=== PATIENT | female | born 1985 | race African-American/Black ===

== ENCOUNTER 2024-06-27 22:33 | Emergency (ER) | payer OTHER, SELFPAY ==
[2024-06-27 22:35] VITALS: BP 149/96
[2024-06-27 22:51] LABS: Urine Albumin Trace (Neg - Trace); Urine Bilirubin Negative (Negative); Urine Character Slightly Cloudy (Clear); Urine Color Straw; Urine Glucose Negative (Negative); Urine Ketone Negative (Negative); Urine Leukocyte 2+ (Negative); Urine Nitrite Negative (Negative); Urine Occult Blood 3+ (Negative); Urine Urobilinogen Negative (Neg - 1+)
[2024-06-27 23:00] LABS: Urine Squamous Cell 26-30 /LPF (Few)
[2024-06-27 23:01] LABS: Urine Bacteria Few (Negative)
[2024-06-28] MEDS: NSS 1000 IV (00:17)
[2024-06-28] MEDS: TORADOL 15 MG IV (00:17)
[2024-06-28] MEDS: ROCEPHIN 1000 MG IV (00:18)
[2024-06-28 00:35] LABS: HCG, Serum Qualitative Screen Negative
[2024-06-28 00:39] LABS: Blood Urea Nitrogen 16 mg/dl (7-17); Calcium 8.9 mg/dl (8.4-10.2); Carbon Dioxide 21 mmol/L (22-30); Chloride 108 mmol/L (98-107); Glucose 115 mg/dl (70-99); Potassium 3.6 mmol/L (3.5-5.1); Sodium 142 mmol/L (135-145); eGFR > 60.00
[2024-06-28 00:40] LABS: % Basophils 0.2 % (0-2); % Eosinophils 1.4 % (0-6); % Immature Granulocytes 1.2 % (0-0.5); % Lymphocytes 18.4 % (20.5-51.1); % Monocytes 7.3 % (1.7-9.3); % Neutrophils 71.5 % (42.2-75.2); Absolute Eosinophils 0.1 10^3/uL (0-0.7); Absolute Immature Granulocytes 0.1 10^3/uL (0-0.05); Absolute Lymphocytes 1.6 10^3/uL (1.2-3.4); Absolute Monocytes 0.6 10^3/uL (0.1-0.6); Absolute Neutrophils 6.3 10^3/uL (1.4-6.5); Hematocrit 30.7 % (37.0-47.0); Hemoglobin 10.5 g/dL (12.0-16.0); Mean Corp Hgb Conc. 34.2 g/dL (33.0-37.0); Mean Corpuscular Hgb 28.9 pg (27.0-31.0); Mean Corpuscular Volume 84.6 fL (81.0-99.0); Mean Platelet Volume 10.8 fL (7.4-10.4); Nucleated Red Blood Cells % 0 %; Platelet Count 224 10^3/uL (130-400); Red Blood Cell Count 3.63 10^6/uL (4.20-5.40); Red Cell Dist. Width 13.2 % (11.5-14.5); White Blood Cell Count 8.8 10^3/uL (4.8-10.8)
--- NOTE | 2024-06-28 01:02 | ED.GENMED ---
History of Present Illness
General
Chief Complaint: Urinary Symptoms
Source: patient
Exam Limitations: none
Time Seen by Provider: 06/27/24 23:36
History of Present Illness
History of Present Illness:
38-year-old female describing UTI-like symptoms for 4 days with dysuria frequency and urgency. Started with back pain earlier today. No obvious fever or chills but did have a low-grade fever on arrival. History of UTIs in the past.
Past History
Past History
ED Past Surgical History: Cholecystectomy and
Review of Systems
Review of Systems
All Other Systems: Not applicable
Constitutional: Reports fever
ABD/GI: Reports no symptoms
Phy Exam
Physical Exam
Physical Exam:
GENERAL: Alert and oriented in no apparent distress. But does appear uncomfortable
EYE: Orbits normal.
NECK: Supple
CARDIAC: Regular rate and rhythm without any obvious murmurs.
LUNGS: Clear breath sounds,normal
ABDOMEN: Soft, without focal tenderness or distention no CVA tenderness
NEUROLOGICAL: Alert and oriented , grossly non-focal
SKIN: Warm and dry, no rash or lesion, no discoloration, skin intact.
MUSCULOSKELETAL: No edema,no deformity.Good color
PSYCH: Normal and appropriate interaction.
Sepsis
Sepsis Screening
Sepsis Assessment: Sepsis Ruled Out
Sepsis Screen
Sepsis Screen: Sepsis Ruled Out
Date: 06/28/24
Time: 01:46
Course
Orders/Labs/Results
Orders:
Orders
06/27/24 22:42
Urinalysis Reflex To Culture Urgent
Date Specimen was Collected: 06/27/24
Time Specimen was Collected: 22:39
Urine Microscopic Reflex Cult Urgent
Urine Culture Urgent
JAYNA Source: U
Specimen Description:
Date Specimen was Collected: 06/27/24
Time Specimen was Collected: 22:39
06/27/24 23:53
IV Insert/Care/Rem.- Treatment PRN
Basic Metabolic Panel Urgent
Complete Blood Count/With Diff Urgent
HCG, Serum Qualitative Screen Urgent
0.9% Sodium Chloride 1000 ml [Nss] 1,000 ml IV BOLUS
CefTRIAXone [Rocephin] 1,000 mg IV NOW STA
Ketorolac [Toradol] 15 mg IV NOW STA
Test Result ONCE
06/28/24 00:30
CT Abd/pel Without Iv Or Oral Urgent
Reason For Exam: Back pain/UTI
Abnormal Lab Results
06/27/24 06/28/24
22:42 00:16
RBC 3.63 L 10^6/uL
(4.20-5.40)
Hgb 10.5 L g/dL
(12.0-16.0)
Hct 30.7 L %
(37.0-47.0)
MPV 10.8 H fL
(7.4-10.4)
Abs Immat Gran (auto) 0.1 H 10^3/uL
(0-0.05)
Immature Gran % 1.2 H %
(0-0.5)
Lymphocytes % 18.4 L %
(20.5-51.1)
Chloride 108 H mmol/L
(98-107)
Carbon Dioxide 21 L mmol/L
(22-30)
Glucose 115 H mg/dl
(70-99)
Ur Occult Blood Reflex 3+ A
(Negative)
Leukocyte Esterase Rfl 2+ A
(Negative)
Urine RBC 3-6 A /HPF
(0-2)
Urine WBC (Reflex) 11-15 A /HPF
(0-5)
Urine Bacteria (Reflex) Few A
(Negative)
06/28/24 00:16
06/28/24 00:16
Vital Signs
Initial and Last Documented VS:
Initial Vital Signs
Temp Pulse Resp BP Pulse Ox
100.4 F H 106 18 149/96 99
06/27/24 22:35 06/27/24 22:35 06/27/24 22:35 06/27/24 22:35 06/27/24 22:35
Last Documented Vital Signs
Temp Pulse Resp BP Pulse Ox
100.4 F H 106 18 149/96 99
06/27/24 22:35 06/27/24 22:35 06/27/24 22:35 06/27/24 22:35 06/27/24 22:35
MDM/Problems Addressed
Differential Diagnosis Includes:
UTI/pyelo plus minus obstructing kidney stone. Workup in progress.
*Radiology
Radiology exam reviewed: radiology read reviewed (No obstructing stone. Mildly dilated bilateral ureters. Cystitis.)
*Pulse Oximetry
Patient hypoxic: no
*Critical Care Note
Total Time (30-74mins, 75-104mins- exclusive of procedures): Not Applicable
Update Note
Update Note:
Patient medically stable and nontoxic. No distress. Appears better after fluids and Toradol. All consistent with UTI/early pyelonephritis. Stable for discharge to follow-up. Of note I had done a repeat temperature prior to Toradol with a
temperature of 99.0
ED Attending Note
-
Portions of this chart may have been created with voice recognition software.� Occasional wrong word or��sound alike� substitutions may have occurred due to the inherent limitations of voice recognition software.
Discharge Plan
Departure
Patient Disposition: Home (Routine Discharge)
Date of Disposition: 06/28/24
Time of Disposition: 01:42
Patient with high blood pressure during this ER visit?: Yes
Discharge Problem:
UTI/pyelonephritis
Instructions: Urinary Tract Infection, Adult (DC), BLOOD PRESSURE
Prescriptions:
New
cefdinir 300 mg capsule
300 mg PO BID 7 Days Qty: 14 0RF
Referrals:
Jose Luis Lee MD [Family Provider] - Follow up in 2-3 days
Activity Restrictions/Additional Instructions:
Your prescription was sent to your pharmacy
Stay well-hydrated
Tylenol or Advil for aches
Start the antibiotic this evening
Recheck if not significantly improving in 1 to 2 days, high fever, severe shaking chills, increased pain or any other concerning symptoms
Interventions
Interventions:
*Risk Screen - Suicide Last Done: 06/27/24 22:34
ED-Female Genitourinary Assessment Last Done: 06/28/24 00:20
Discharge Date and Time
Print Language: YORUBA
[2024-06-28 01:45] VITALS: BP 114/71
== END 2024-06-28 01:53 | disposition home or self-care (01) ==
LOC: EMR 22:33
PROVIDERS: EMERGENCY PHYSICIAN Emergency Medicine; FAMILY PHYSICIAN Internal Medicine
DX: N12 Tubulo-interstitial nephritis, not specified as acute or chronic (principal); N39.0 Urinary tract infection, site not specified; Z87.440 Personal history of urinary (tract) infections
CPT/HCPCS: 99284; 96374; 96375; 96361; 74176; 80048; 81003; 81015; 84703; 85025; 87086